=== PATIENT | male | born 1985 | race Caucasian/White ===

== ENCOUNTER 2022-03-22 18:38 | Emergency (ER) | payer OTHER ==
[2022-03-22] MEDS ORDERED: AMOX TR-K CLV1 EAC4 PO (19:16)
== END 2022-03-22 20:08 | disposition home or self-care (01) ==
LOC: FER 18:38
DX: S61.432A Puncture wound without foreign body of left hand, initial encounter (principal); S61.431A Puncture wound without foreign body of right hand, initial encounter; Z23 Encounter for immunization; W54.0XXA Bitten by dog, initial encounter; Y92.009 Unspecified place in unspecified non-institutional (private) residence as the place of occurrence of the external cause
CPT/HCPCS: 90471; 90715; 99283